=== PATIENT | female | born 1965 | race Caucasian/White ===

== ENCOUNTER 2019-02-13 16:42 | Emergency (ER) | payer OTHER ==
[2019-02-13 16:50] VITALS: BP 129/90
--- NOTE | 2019-02-13 17:47 | XRAY Report ---
Reason: trauma Procedure Date: 02/13/2019 Accession Number: [id number] / [id number] Procedure: XR - Foot 3 View RT CPT Code: FULL RESULT: EXAM: RIGHT FOOT RADIOGRAPHY EXAM DATE: 02/13/2019 05:25 PM. CLINICAL HISTORY: Right foot pain status post trauma. COMPARISON: None. TECHNIQUE: 3 views. FINDINGS: Bones: Normal bone mineralization. No fractures or bone lesions. Joints: Normal. No subluxations. Soft Tissues: Normal. No soft tissue swelling. IMPRESSION: Normal right foot radiography. RADIA
--- NOTE | 2019-02-13 17:50 | XRAY Report ---
Reason: trauma Procedure Date: 02/13/2019 Accession Number: [id number] / [id number] Procedure: XR - Ankle 3 View RT CPT Code: FULL RESULT: EXAM: RIGHT ANKLE RADIOGRAPHY EXAM DATE: 02/13/2019 05:25 PM. CLINICAL HISTORY: Right ankle pain status post trauma. COMPARISON: None. TECHNIQUE: 3 views. FINDINGS: Bones: Normal mineralization. No fractures or bone lesions. Joints: Normal. No effusion. No subluxations. The ankle mortise is normally aligned. Soft Tissues: Normal. No soft tissue swelling. IMPRESSION: Normal right ankle radiography. RADIA
== END 2019-02-13 19:02 | disposition left against medical advice (07) ==
LOC: ED 16:42
DX: Z53.21 Procedure and treatment not carried out due to patient leaving prior to being seen by health care provider (principal)

== ENCOUNTER 2019-02-14 07:44 | Emergency (ER) | payer OTHER ==
[2019-02-14 07:57] VITALS: BP 133/75
[2019-02-14] MEDS ORDERED: DEXAMETHASONE 10 MG/ML VIAL PO STA (08:50)
[2019-02-14] MEDS ORDERED: CHERRY SYRUP 10 ML UDC PO ONE (08:50)
--- NOTE | 2019-02-14 08:53 | ED Physician Documentation ---
PD HPI LOWER EXT INJURY - Stated complaint Stated Complaint: FT/ANKLE PX - Chief complaint Chief Complaint: Ext Problem - History obtained from History obtained from: Patient - History of Present Illness PD HPI LOW EXT INJURY LOCATION: Right, Foot Type of injury: Other (overuse) Where injury occurred: Home Timing - onset: How many weeks ago (2) Timing - duration: Weeks (2) Timing - details: Gradual onset, Still present Improved by: Rest, Immobilization Worsened by: Moving, Palpating Associated symptoms: Swelling. No: Weakness, Numbness, Tingling Contributing factors: No: Anticoagulated Similar symptoms before: Has not had sx before Recently seen: Not recently seen - Additional information Additional information: Previously well 53-year-old female who has moved from [place] to [facility] 2 weeks ago she indicates that she made multiple car trips [address] and began to develop pain in the dorsum of her right foot and this has increased over the past 2 weeks. She has some improvement when she is off of her foot but when she is moving and walking she is having to use the outside of her foot and heel to walk on. She does not recall any specific contusion to the area. Review of Systems Constitutional: denies: Fever Ears: denies: Ear pain Nose: denies: Congestion Respiratory: denies: Cough GI: denies: Vomiting PD PAST MEDICAL HISTORY - Past Medical History Past Medical History: No - Past Surgical History Past Surgical History: No - Allergies Allergies/Adverse Reactions: Allergies Allergy/AdvReac Type Severity Reaction Status Date / Time Sulfa (Sulfonamide Allergy Unknown Verified 02/14/19 07:57 Antibiotics) - Social History Does the pt smoke?: No Smoking Status: Never smoker PD ED PE NORMAL - Vitals Vital signs reviewed: Yes (hypertensive mild ) - General General: Alert and oriented X 3, No acute distress, Well developed/nourished - HEENT HEENT: Atraumatic, PERRL, EOMI - Respiratory Respiratory: No respiratory distress - Derm Derm: Normal color, Warm and dry, No rash - Extremities Extremities: No deformity, No edema, Other (There is mild pain to palpation of the middle of the 3rd metatarsal over the extensor tendon. ) Results - Vitals Vitals: Vital Signs - 24 hr 02/14/19 07:55 Temperature 35.9 C L Heart Rate 76 Respiratory 19 Rate Blood Pressure 133/75 H O2 Saturation 100 Oxygen O2 Source Room air PD MEDICAL DECISION MAKING - ED course Complexity details: reviewed results, re-evaluated patient, considered differential, d/w patient ED course: 53 y/o female with pain to the dorsum of the left foot. She has had excessive use and I suspect this is related. She is administered decadron and will follow up with ortho as needed. Departure - Departure Disposition: 01 Home, Self Care Clinical Impression: Metatarsalgia of right foot Condition: Stable Instructions: Metatarsalgia Follow-Up: [facility] [Provider Group] Discharge Date/Time: 02/14/19 09:17
== END 2019-02-14 09:17 | disposition home or self-care (01) ==
LOC: ED 07:44
DX: M77.41 Metatarsalgia, right foot (principal)
CPT/HCPCS: 99282; 99284; A9270

== ENCOUNTER 2019-03-28 07:16 | Outpatient (CLI) | payer OTHER ==
[2019-03-28 07:49] LABS: BASOPHILS # (AUTO) 0.1 10^3/uL (0.0-0.1); BASOPHILS % (AUTO) 1.3 %; EOSINOPHILS # (AUTO) 0.2 10^3/uL (0.0-0.7); EOSINOPHILS % (AUTO) 3.3 %; HGB - HEMOGLOBIN 13.5 g/dL (12.0-16.0); LYMPHOCYTES # (AUTO) 1.8 10^3/uL (1.5-3.5); LYMPHOCYTES % (AUTO) 40.2 %; MEAN CORPUSCULAR HEMOGLOBIN 29.3 pg (27.0-31.0); MEAN CORPUSCULAR HGB CONC 33.4 g/dL (32.0-36.0); MEAN CORPUSCULAR VOLUME 87.8 fL (81.0-99.0); MEAN PLATELET VOLUME 9.6 fL (7.9-10.8); MONOCYTES # (AUTO) 0.5 10^3/uL (0.0-1.0); MONOCYTES % (AUTO) 10.7 %; NEUTROPHILS % (AUTO) 44.3 %; PLT - PLATELET COUNT 305 10^3/uL (130-450); RED CELL DISTRIBUTION WIDTH 13.1 % (12.0-15.0); WHITE BLOOD COUNT 4.5 x10^3/uL (4.8-10.8)
[2019-03-28 08:12] LABS: ALBUMIN 4.6 g/dL (3.2-5.5); ALBUMIN/GLOBULIN RATIO 1.8 (1.0-2.2); ALKALINE PHOSPHATASE 77 IU/L (42-121); ALT ALANINE AMINOTRANSFERASE 19 IU/L (10-60); AST ASPARTATE AMINOTRANSFERASE 21 IU/L (10-42); BILIRUBIN,TOTAL 1.2 mg/dL (0.2-1.0); BUN - BLOOD UREA NITROGEN 20 mg/dL (6-20); CALCIUM 9.6 mg/dL (8.5-10.3); CARBON DIOXIDE - CO2 25 mmol/L (21-32); CHLORIDE 103 mmol/L (101-111); CHOL/HDL RATIO 2.1 (<4.4); CHOLESTEROL 186 mg/dL; CREATININE 0.9 mg/dL (0.4-1.0); GFR - MDRD 65 (>89); GLUCOSE 110 mg/dL (70-100); HDL CHOLESTEROL 89 mg/dL; LDL CHOLESTEROL,CALCULATED 83 mg/dL; LDL/HDL RATIO 0.9 (<4.4); SODIUM 138 mmol/L (135-145); TOTAL PROTEIN 7.2 g/dL (6.7-8.2); VLDL CHOLESTEROL 14 mg/dL
[2019-03-29 11:52] LABS: HEPATITIS C ANTIBODY NON-REACTIVE (NON-REACTIVE)
[2019-03-29 17:57] LABS: HIV AG/AB 4TH GEN NON-REACTIVE (NON-REACTIVE)
[2019-03-30 11:27] LABS: HSV 1 IGG TYPE SPECIFIC AB <0.90 index; HSV 2 IGG TYPE SPECIFIC AB <0.90 index
== END 2019-03-28 07:17 | disposition home or self-care (01) ==
LOC: LAB 07:16
PROVIDERS: ATTEND Nurse Practitioner
DX: Z00.00 Encounter for general adult medical examination without abnormal findings (principal); Z86.39 Personal history of other endocrine, nutritional and metabolic disease; Z13.228 Encounter for screening for other metabolic disorders; Z11.3 Encounter for screening for infections with a predominantly sexual mode of transmission
CPT/HCPCS: 36415; 80053; 80061; 81599; 83721; 84443; 85025; 86317; 86695; 86696; 86803; 87389

== ENCOUNTER 2019-04-21 07:08 | Outpatient (CLI) | payer OTHER ==
--- NOTE | 2019-04-24 07:38 | Ultrasound Report ---
Reason: HISTORY OF HYPERTHYROIDISM Procedure Date: 04/21/2019 Accession Number: [id number] / [id number] Procedure: US - Head or Neck Soft Tissue CPT Code: FULL RESULT: EXAM: THYROID ULTRASOUND EXAM DATE: 04/21/2019 08:45 AM. CLINICAL HISTORY: History of hyperthyroidism. COMPARISON: None. TECHNIQUE: Real time sonographic imaging of the thyroid was performed by the brine tank separator operator. Multiple union contract representative static images were saved for review. FINDINGS: THYROID GLAND: Right Lobe: 8.8 x 3.4 x 3.2 cm. Normal background echotexture. Right Lobe Nodules: 4.3 x 2.3 x 4.4 lower pole heterogeneous, complex cystic nodule. Very low suspicion nodule, but is measured at greater than 2 cm. Consider aspiration versus observation. Left Lobe: 6.5 x 3.1 x 1.5 cm. Normal background echotexture. Left Lobe Nodules: 0.3 x 0.3 x 0.4 cm superior pole calcified nodule. Very low suspicion. 1.8 x 1.8 x 2.2 cm mid pole solid heterogeneous nodule. Low suspicion. Recommend consideration of FNA. 2.3 x 1.2 x 2.2 cm mid to inferior pole solid heterogeneous nodule. Low suspicion. Recommend consideration of FNA. 2.3 x 1.1 x 1.4 cm inferior pole hypoechoic heterogeneous nodule. Recommend consideration of FNA. Isthmus: 1.0 cm AP. Isthmic Nodules: None. LYMPH NODES: No adenopathy demonstrated in the central or lateral compartment. OTHER: None. IMPRESSION: Enlarged thyroid with bilateral nodules as above. Given their size and appearance, consideration of FNA is suggested. Management recommendations are based on 2015 [place] [employer] Management Guidelines for Adult Patients with Thyroid Nodules and Differentiated Thyroid Cancer. RADIA
== END 2019-04-21 07:09 | disposition home or self-care (01) ==
LOC: DI 07:08
PROVIDERS: ATTEND Nurse Practitioner
DX: E04.2 Nontoxic multinodular goiter (principal)
CPT/HCPCS: 76536

== ENCOUNTER 2019-04-21 07:13 | Outpatient (CLI) | payer OTHER ==
--- NOTE | 2019-04-21 11:16 | Mammography Report ---
Reason: ROUTINE MAMMO Procedure Date: 04/21/2019 Accession Number: [id number] / [id number] Procedure: SAMEERA - Screening Mammo w/Gomez CPT Code: FULL RESULT: EXAM: Screening Mammo w/Gomez DATE: 04/21/2019 7:59 AM CLINICAL HISTORY: Routine screening TECHNIQUE: (B) - Bilateral CC and MLO views were obtained. COMPARISON: 11/11/2016, 11/11/2015, 09/04/2014 PARENCHYMAL PATTERN: (A) - The breasts demonstrate scattered fibroglandular densities bilaterally. FINDINGS: No significant interval change. There are no suspicious masses, calcifications, or areas of distortion. IMPRESSION: Negative examination. BI-RADS category 1. RECOMMENDATION: (ANNUAL) - Recommend routine annual screening mammography. BI-RADS CATEGORY: (1) - Negative. STANDARD QUALIFYING STATEMENTS: 1. This examination was not reviewed with the aid of Computer-Aided Detection (CAD). 2. A negative or benign imaging report should not preclude biopsy if clinically suspicious findings are present. 3. Dense breasts may obscure an underlying neoplasm. 4. This examination was reviewed with the aid of 3D breast imaging (tomosynthesis).
== END 2019-04-21 07:14 | disposition home or self-care (01) ==
LOC: DI 07:13
DX: Z12.31 Encounter for screening mammogram for malignant neoplasm of breast (principal)
CPT/HCPCS: 77063; 77067

== ENCOUNTER 2019-04-24 15:41 | Outpatient (CLI) | payer OTHER ==
[2019-04-24 17:05] LABS: THYROID STIMULATING HORMONE 1.37 uIU/mL (0.34-5.60)
[2019-04-24 17:07] LABS: FREE T4 (FREE THYROXINE) 0.76 ng/dL (0.58-1.64)
[2019-04-24 17:17] LABS: HB2 TOTAL 13.3 g/dL; HEMOGLOBIN A1C 0.51 g/dL; HEMOGLOBIN A1C % 5.7 % (4.6-6.2)
== END 2019-04-24 15:42 | disposition home or self-care (01) ==
LOC: LAB 15:41
PROVIDERS: ATTEND Nurse Practitioner
DX: Z86.39 Personal history of other endocrine, nutritional and metabolic disease (principal); R73.01 Impaired fasting glucose
CPT/HCPCS: 36415; 83036; 84439; 84443; 84481; 86800

== ENCOUNTER 2019-05-29 08:30 | Outpatient (CLI) | payer OTHER ==
[~2019-05-29 08:30] MED LIST: BUFFERED LIDOCAINE 10 ML SYRINGE ONE
--- NOTE | 2019-05-29 16:55 | Ultrasound Report ---
Reason: MULTINODULAR GOITER Procedure Date: 05/29/2019 Accession Number: [id number] / [id number] Procedure: US - FNA Bx w/US Gnd les CPT Code: 82895 Final Report FULL RESULT: EXAM: Thyroid Fine Needle Aspiration EXAM DATE: 05/29/2019 10:22 AM. CLINICAL HISTORY: MULTINODULAR GOITER. COMPARISON: 04/21/2019. TECHNIQUE: The risks, benefits, and alternatives of the procedure were discussed with the patient. All questions were answered. Written and verbal consent were obtained. A site was marked over the dominant left lower lobe nodule under live sonographic evaluation, then subsequently prepped and draped in a sterile manner. Local anesthesia was performed with 1% lidocaine. Four 22 gauge fine-needle aspirates/passes were performed through the nodule in question.. Estimated blood loss was minimal mL. Sonographic images demonstrate needle placement within nodule in question. FINDINGS IMPRESSION: Preprocedure targeted ultrasound demonstrates a heterogeneous multi-nodular thyroid gland. There are conglomerate nodules replacing the mid and lower pole of the left thyroid lobe spanning approximately 8 cm in that dimension. This dominant site was targeted for access service representative cytologic evaluation (fine-needle aspiration performed). Final cytology results pending at this time. RADIA
[2019-05-29] MEDS ORDERED: BUFFERED LIDOCAINE 10 ML SYRINGE IU ONE (17:01)
== END 2019-05-29 08:31 | disposition home or self-care (01) ==
LOC: DI 08:30
PROVIDERS: ATTEND Nurse Practitioner
DX: E04.2 Nontoxic multinodular goiter (principal)
CPT/HCPCS: 10005

== ENCOUNTER 2019-09-07 07:00 | Outpatient (CLI) | payer BC, OTHER | END 2019-09-07 23:59 | disposition home or self-care (01) | LOC: LAB.R 07:00 | PROVIDERS: ATTEND Registered Nurse | DX: J06.9 Acute upper respiratory infection, unspecified (principal) | CPT/HCPCS: 81599 ==

== ENCOUNTER 2020-05-01 15:22 | Outpatient (CLI) | payer BC ==
--- NOTE | 2020-05-02 14:42 | Mammography Report ---
BILATERAL DIGITAL SCREENING MAMMOGRAM 3D/2D: 05/01/2020 CLINICAL: Routine screening. Comparison is made to exams dated: 04/21/2019 mammogram and 11/11/2016 mammogram and 11/11/2015 mammog [facility]. There are scattered fibroglandular elements in both breasts. No significant masses, calcifications, or other findings are seen in either breast. There has been no significant interval change. IMPRESSION: NEGATIVE There is no mammographic evidence of malignancy. A 1 year screening mammogram is recommended. This exam was interpreted at Station ID: [id number]. NOTE: For mammograms, a report in lay terms will be sent to the patient. Approximately 15% of breast malignancies will not be visualized mammographically. In the management of a palpable breast mass, a negative mammogram must not discourage biopsy of a clinically suspicious lesion. Electronically Signed By: Raul Duran M.D. slc/:05/01/2020 17:35:50 ACR BI-RADS Category 1: Negative 3341F PARENCHYMAL PATTERN: (A) - The breast(s) demonstrate(s) scattered fibroglandular densities. BI-RADS CATEGORY: (1) - 1 RECOMMENDATION: (ANNUAL) - Recommend routine annual screening mammography. [id number] 1 year screening LATERALITY: (B)
== END 2020-05-01 15:23 | disposition home or self-care (01) ==
LOC: DI 15:22
PROVIDERS: ATTEND Nurse Practitioner
DX: Z12.31 Encounter for screening mammogram for malignant neoplasm of breast (principal)
CPT/HCPCS: 77063; 77067